=== PATIENT | male | born 2000 | race African-American/Black ===

== ENCOUNTER 2020-03-28 22:46 | Emergency (ER) | payer OTHER ==
[2020-03-28] MEDS ORDERED: Ondansetron PF 4 MG/2 ML Vial ONE (23:13)
[2020-03-28] MEDS ORDERED: Morphine 4 MG/ML VIAL ONE (23:13)
[2020-03-28 23:18] LABS: Hemoglobin 15.4 g/dL (14.0-18.0); Mean Corpuscular Hemoglobin 30.7 pg (25.0-35.0); Mean Corpuscular Volume 93.1 fL (78.0-98.0); Mean Platelet Volume 5.9 fL (7.4-10.4); Platelet Count 264 thou/uL (130-400); RBC Distribution Width 11.1 % (11.5-14.5); Red Blood Cell (RBC) Count 5.01 mill/uL (4.00-5.20); White Blood Cell (WBC) Count 5.3 thou/uL (4.8-10.8)
[2020-03-28 23:23] LABS: Band 8 % (5-11); Eosinophils 1 % (0-10); Lymphocytes 38 % (28-48); MDiff Complete? YES; Monocytes 6 % (0-4); Neutrophil 47 % (31-61); Platelet Morphology Comment Appears Adequate; RBC Morphology Normal
[2020-03-28 23:27] LABS: ALT (SGPT) 13 U/L (8-55); AST (SGOT) 19 U/L (10-45); Albumin 4.8 g/dL (3.5-5.0); Alkaline Phosphatase 58 U/L (50-130); Anion Gap 18 mmol/L (10-20); BUN (Urea Nitrogen) 12 mg/dL (8.4-21.0); Bilirubin, Total 0.8 mg/dL (0.2-1.2); Calc. Creatinine Clearance 0 mL/min (70-130); Calcium 9.3 mg/dL (7.8-10.44); Carbon Dioxide 23 mmol/L (22-29); Chloride 101 mmol/L (98-107); Estimated GFR-MDRD Greater than 90; Globulin 2.8 g/dL (2.4-3.5); Glucose 106 mg/dL (70-105); Potassium 3.6 mmol/L (3.5-5.1); Protein, Total 7.6 g/dL (6.0-8.3); Sodium 138 mmol/L (136-145)
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
[2020-03-28] MEDS ORDERED: TETANUS AND DIPHTHERIA TOX/PF 0.5 ML DISP.SYRIN ONE (23:43)
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
[2020-03-28] MEDS ORDERED: Piperacillin/Tazobactam 3.375 GM VIAL ONE (23:57)
[2020-03-28] MEDS ORDERED: Sodium Chloride 0.9% 100 ML ONE (23:58)
[2020-03-29] MEDS ORDERED: Morphine 4 MG/ML VIAL ONE (00:55)
== END 2020-03-29 01:59 | disposition short-term general hospital (02) ==
LOC: NAV ERS 22:46
DX: S02.609A Fracture of mandible, unspecified, initial encounter for closed fracture (principal); W50.0XXA Accidental hit or strike by another person, initial encounter
CPT/HCPCS: 70450; 70486; 72125; 80053; 85025; 90471; 90714; 96365; 96375; 96376; J2270; J2405; J2543; J3490